=== PATIENT | male | born 1990 | race Two or more races ===

== ENCOUNTER 2022-08-08 16:43 | Inpatient (IN) | payer MEDICAID ==
[~2022-08-08] VITALS: Ht 165.1 cm; Wt 81.8 kg
[2022-08-08] MEDS ORDERED: HALOPERIDOL LACTATE 5 MG/ML VIAL IM ONE (18:30)
[2022-08-08] MEDS ORDERED: DiphenhydrAMINE HCL 50 MG/ML VIAL IM ONE (18:30)
[2022-08-08] MEDS ORDERED: LORazepam 2 MG/ML VIAL IM ONE (18:30)
[2022-08-08 18:54] LABS: COVID AG,FIA SOURCE NASAL SWAB
[2022-08-09] MEDS ORDERED: HALOPERIDOL 5 MG TABLET PO PRN (01:30)
[2022-08-09] MEDS ORDERED: ZOLPIDEM TARTRATE 10 MG TABLET PO PRN (01:30)
[2022-08-09 02:19] LABS: APPEARANCE,URINE CLEAR (CLEAR); BILIRUBIN,URINE NEGATIVE (NEGATIVE); GLUCOSE, URINE (UA) NEGATIVE (NEGATIVE); KETONES,URINE NEGATIVE (NEGATIVE); LEUKOCYTE ESTERASE ,URINE NEGATIVE (NEGATIVE); NITRATE,URINE NEGATIVE (NEGATIVE); OCCULT BLOOD,URINE NEGATIVE (NEGATIVE); PH,URINE 5.5 (5.0-8.0); PROTEIN,URINE NEGATIVE (NEGATIVE); SPECIFIC GRAVITIY, URINE 1.008 (1.003-1.030); UROBILINOGEN,URINE <=1.0 mg/dL (<=1.0)
[2022-08-09 02:26] LABS: AMPHET/METH SCREEN,URINE POSITIVE (NEGATIVE); BARBITURATE SCREEN, URINE NEGATIVE (NEGATIVE); BENZODIAZEPINES SCREEN,URINE NEGATIVE (NEGATIVE); CANNABINOID SCREEN,URINE POSITIVE (NEGATIVE); COCAINE SCREEN,URINE NEGATIVE (NEGATIVE); METHADONE SCREEN, URINE NEGATIVE (NEGATIVE); OPIATE SCREEN,URINE NEGATIVE (NEGATIVE)
[2022-08-09 02:27] LABS: PHENCYCLIDINE SCREEN,URINE NEGATIVE (NEGATIVE)
[2022-08-09] MEDS ORDERED: INFLUENZA VIRUS VACCINE QVS 2022-23 (6MO+)/PF 60 MCG/0.5 ML SYRINGE IM. ONE (04:45)
[2022-08-09] MEDS ORDERED: LOPERAMIDE HCL 2 MG CAPSULE PO PRN (06:45)
[2022-08-09] MEDS ORDERED: ALBUTEROL SULFATE HFA 90 MCG/PUFF 8 GM INHALER IH PRN (06:45)
[2022-08-09] MEDS ORDERED: IBUPROFEN 600 MG TABLET PO PRN (06:45)
[2022-08-09] MEDS ORDERED: BACITRACIN 28 GM OINTMENT TP PRN (06:45)
[2022-08-09] MEDS ORDERED: MAG HYDROX/AL HYDROX/SIMETH ES 30 ML SUSPENSION UDCUP PO PRN (06:45)
[2022-08-09] MEDS ORDERED: OMEPRAZOLE 20 MG CAPSULE PO PRN (06:45)
[2022-08-09] MEDS ORDERED: ACETAMINOPHEN 325 MG TABLET PO PRN (06:45)
[2022-08-09] MEDS ORDERED: BENZOCAINE/MENTHOL LOZENGE PO PRN (06:45)
[2022-08-09] MEDS ORDERED: ONDANSETRON HCL 4 MG TABLET PO PRN (06:45)
[2022-08-09] MEDS ORDERED: PETROLATUM,WHITE 28 GM JELLY TP PRN (06:45)
[2022-08-09] MEDS ORDERED: DOCUSATE SODIUM 100 MG CAPSULE PO PRN (06:45)
[2022-08-09] MEDS ORDERED: MAGNESIUM HYDROXIDE SUSPENSION 30 ML UDCUP PO PRN (06:45)
[2022-08-09] MEDS ORDERED: CloNIDine HCL 0.1 MG TABLET PO PRN (06:45)
[2022-08-09 08:08] VITALS: BP 106/67
[2022-08-09 08:15] LABS: BASOPHILS % (AUTO) 0.9 % (0.0-2.0); EOSINOPHILS % (AUTO) 2.2 % (1.0-6.0); HEMATOCRIT 36.8 % (41-53); HEMOGLOBIN 12.4 g/dL (13.5-17.5); LYMPHOCYTES # (AUTO) 2.7 K/uL (1.0-4.8); LYMPHOCYTES % (AUTO) 42.1 % (22.0-44.0); MEAN CORPUSCULAR HGB CONC 33.8 G/dL (31.0-37.0); MEAN CORPUSCULAR VOLUME 89 fL (80-100); MONOCYTES # (AUTO) 0.8 K/uL (0.1-1.0); MONOCYTES % (AUTO) 11.6 % (2.0-9.0); NEUTROPHILS # (AUTO) 2.8 K/uL (1.8-7.7); NEUTROPHILS % (AUTO) 43.2 % (40.0-70.0); PLATELET COUNT (AUTO) 277 K/uL (150-450); RED BLOOD CELL COUNT(AUTO) 4.14 MIL/uL (4.50-5.90); RED CELL DISTRIBUTION WIDTH 13.4 % (11.5-14.5)
[2022-08-09 08:27] LABS: ANION GAP 4 mmol/L (8-16); CALCIUM, TOTAL 9.1 mg/dL (8.8-10.5); CARBON DIOXIDE 31 mmol/L (22-29); CHLORIDE 102 mmol/L (98-107); GLUCOSE,RANDOM 107 mg/dL (70-110); POTASSIUM 3.9 mmol/L (3.5-5.1); SODIUM SERUM 137 mmol/L (136-145); UREA NITROGEN, BLOOD 11 mg/dL (7-18)
[2022-08-09 08:28] LABS: GLOMERULAR FILTR. RATE CALC > 60 mL/min (>60)
[2022-08-09 08:32] LABS: ALANINE AMINOTRANSFERASE 47 U/L (12-78); ALBUMIN 3.7 g/dL (3.4-5.0); ALKALINE PHOSPHATASE 97 U/L (46-116); ASPARTATE AMINOTRANSFERASE 33 U/L (15-37); BILIRUBIN,TOTAL 0.5 mg/dL (0.1-1.0); TOTAL PROTEIN, SERUM 6.9 g/dL (6.4-8.2)
[2022-08-09 16:16] VITALS: BP 128/79
[2022-08-09] MEDS: NICOTINE 21 MG/24 HOUR PATCH TD PRN (18:09)
[2022-08-09] MEDS: LORazepam 2 MG TABLET PO PRN (18:32)
[2022-08-09] MEDS: OLANZapine 5 MG TABLET PO SCH (20:18)
[2022-08-10] MEDS: LORazepam 2 MG TABLET PO PRN ×2 (03:31→15:54)
[2022-08-10 08:20] VITALS: BP 98/62
[2022-08-10] MEDS: OLANZapine 5 MG TABLET PO SCH ×2 (08:38→20:50)
[2022-08-10 16:00] VITALS: BP 117/78
[2022-08-11] MEDS: NICOTINE 21 MG/24 HOUR PATCH TD PRN (08:43)
[2022-08-11] MEDS: LORazepam 2 MG TABLET PO PRN ×2 (08:43→21:27)
[2022-08-11] MEDS: OLANZapine 5 MG TABLET PO SCH ×2 (08:43→20:09)
[2022-08-11 10:33] VITALS: BP 117/66
[2022-08-11] MEDS ORDERED: BUPRENORPHINE HCL/NALOXONE HCL 8-2 MG SUBLINGUAL TABLET SL ONE (14:45)
[2022-08-12 08:18] VITALS: BP 110/67
[2022-08-12] MEDS ORDERED: BUPRENORPHINE HCL/NALOXONE HCL 8-2 MG SUBLINGUAL TABLET SL SCH (09:00)
[2022-08-12] MEDS: OLANZapine 5 MG TABLET PO SCH (09:52)
[2022-08-12] MEDS: LORazepam 2 MG TABLET PO PRN (09:53)
[2022-08-12] MEDS: NICOTINE 21 MG/24 HOUR PATCH TD PRN (09:54)
[2022-08-12] MEDS ORDERED: OLAN5TAB52 PO (11:31)
== END 2022-08-12 14:55 | disposition home or self-care (01) | DRG 750 ==
LOC: EMS 16:43 → 3EC 08-09 01:44 → EDBD 08-09 01:44
PROVIDERS: ADMIT Psychiatry & Neurology Psychiatry; ATTEND Psychiatry & Neurology Psychiatry
DX: F25.9 Schizoaffective disorder, unspecified (principal); F11.20 Opioid dependence, uncomplicated; F15.10 Other stimulant abuse, uncomplicated; F32.A Depression, unspecified; F41.9 Anxiety disorder, unspecified; G47.00 Insomnia, unspecified; I10 Essential (primary) hypertension; K59.00 Constipation, unspecified; Z53.20 Procedure and treatment not carried out because of patient's decision for unspecified reasons; F12.10 Cannabis abuse, uncomplicated; Z89.512 Acquired absence of left leg below knee; Z59.00 Homelessness unspecified; Z91.51 Personal history of suicidal behavior; Z79.899 Other long term (current) drug therapy
CPT/HCPCS: 80053; 81003; 85025; 99285; G0480